=== PATIENT | male | born 1955 | race Caucasian/White ===

== ENCOUNTER 2016-12-17 09:45 | Emergency (ER) | payer MEDICAID ==
[2016-12-17 09:50] VITALS: RESP 18; TEMP 98.4
--- NOTE | 2016-12-17 09:57 | CPEKG ---
Heart Rate: 74 RR Interval: 811 P-R Interval: 160 QRSD Interval: 102 QT Interval: 360 QTC Interval: 400 P Jackson: 47 QRS Jackson: -17 T Wave Jackson: 9 EKG Severity - OTHERWISE NORMAL ECG - EKG Impression: SINUS RHYTHM EKG Impression: BORDERLINE LEFT AXIS DEVIATION Electronically Signed By: Riley Storm 17-Dec-2016 15:54:26
--- NOTE | 2016-12-17 10:17 | EDPHY ---
H & P Time Seen by Provider: 12/17/16 10:17 HPI/ROS: Chief complaint. Shortness of breath HPI. 61-year-old male presents emergency department with shortness of breath for 3 days. He feels like he is not getting enough air. Symptoms are present at rest but also especially with exertion such as climbing stairs at home. However he played golf over the weekend when and was in lead Advil over the weekend and he had no symptoms. He has some pressure anterior chest discomfort that radiates through to his back. He has had numbness to the left palm for 3 days but no weakness to the hand. No leg weakness or altered sensation. No unusual leg pain or swelling. No similar symptoms previously. No aspirin in the last 24 hours ROS Constitutional. no fever/chills, no weakness Eyes. no problems with vision ENT. no sore throat, no nasal drainage Cardiovascular. Chest discomfort Respiratory. Shortness of breath Abdominal. no abdominal pain, no nausea/vomiting, no diarrhea . no problems urinating MS. no calf pain/swelling, no neck/back pain, no joint pain Skin. no rash Lymph. no swollen glands Neuro. no headache, no dizziness, no difficulty walking or with speech Past Medical/Surgical History: Past medical history seen for prostate cancer Family history brother had an [place] 10 years ago Social History: Single, nonsmoker, no alcohol Smoking Status: Never smoked Physical Exam: General Appearance: Alert well-developed male mild distress vital signs are stable Eyes: Pupils equal and round no pallor or injection. ENT, Mouth: Mucous membranes are moist. Respiratory: There are no retractions, lungs are clear to auscultation. Cardiovascular: Regular rate and rhythm. Gastrointestinal: Abdomen is soft and nontender, no masses, bowel sounds normal. Neurological: Awake and alert, sensory and motor exams grossly normal. Skin: Warm and dry, no rashes. Musculoskeletal: Neck is supple nontender. Extremities symmetrical, full range of motion. Psychiatric: Patient is oriented X 3, there is no agitation. Constitutional: Initial Vital Signs Temperature (C) 36.9 C 12/17/16 09:48 Heart Rate 84 12/17/16 09:48 Respiratory Rate 18 12/17/16 09:48 Blood Pressure 152/94 H 12/17/16 09:48 O2 Sat (%) 97 12/17/16 09:48 O2 Delivery Mode Room Air Allergies/Adverse Reactions: No Known Allergies Allergy (Verified 12/17/16 09:48) Home Medications: Medication Instructions Recorded Mirvaso 01/24/15 Albuterol Hfa Anes Only [Proair 2 puffs IH QID PRN #1 mdi 12/17/16 Hfa Icu (*)] Azithromycin [Zithromax] 250 mg PO DAILY #6 tab 12/17/16 Flomax 12/17/16 Medical Decision Making - Diagnostics EKG Interpretation: EKG interpreted by me shows normal sinus rhythm normal interval. Left axis deviation. No significant ST elevation or depression. No arrhythmia. The rate is 74 Imaging Results: Imaging Impressions Chest X-Ray 12/17/16 11:50 Impression: Stable negative chest. I interpreted the chest x-ray is questionable left lower lobe early infiltrate Procedures: IV normal saline, monitor, aspirin in the ED ED Course/Re-evaluation: On re-evaluation the patient is stable. He is offered admission. He would like to be treated as an outpatient. He and I discussed risks and benefits of this. He is encouraged to return for any worsening symptoms. Differential Diagnosis: I considered acute coronary syndrome, COPD and COPD exacerbation, pneumonia, pneumothorax. This may be consistent with bronchitis. - Data Points Laboratory Results: Laboratory Results 12/17/16 10:00 12/17/16 10:00 12/17/16 12/17/16 12/17/16 10:00 10:00 10:00 WBC 6.45 10^3/uL 10^3/uL (3.80-9.50) RBC 4.99 10^6/uL 10^6/uL (4.40-6.38) Hgb 15.5 g/dL g/dL (13.7-17.5) Hct 46.7 % % (40.0-51.0) MCV 93.6 fL fL (81.5-99.8) MCH 31.1 pg pg (27.9-34.1) MCHC 33.2 g/dL g/dL (32.4-36.7) RDW 12.7 % % (11.5-15.2) Plt Count 225 10^3/uL 10^3/uL (150-400) MPV 9.9 fL fL (8.7-11.7) Neut % (Auto) 54.9 % % (39.3-74.2) Lymph % (Auto) 27.4 % % (15.0-45.0) [place] % (Auto) 12.7 % % (4.5-13.0) Eos % (Auto) 3.9 % % (0.6-7.6) Baso % (Auto) 0.6 % % (0.3-1.7) Nucleat RBC Rel Count 0.0 % % (0.0-0.2) Absolute Neuts (auto) 3.54 10^3/uL 10^3/uL (1.70-6.50) Absolute Lymphs (auto) 1.77 10^3/uL 10^3/uL (1.00-3.00) Absolute Monos (auto) 0.82 10^3/uL H 10^3/uL (0.30-0.80) Absolute Eos (auto) 0.25 10^3/uL 10^3/uL (0.03-0.40) Absolute Basos (auto) 0.04 10^3/uL 10^3/uL (0.02-0.10) Absolute Nucleated RBC 0.00 10^3/uL 10^3/uL (0-0.01) Immature Gran % 0.5 % % (0.0-1.1) Immature Gran # 0.03 10^3/uL 10^3/uL (0.00-0.10) D-Dimer < 0.27 ug/mLFEU ug/mLFEU (0.00-0.50) Sodium 140 mEq/L mEq/L (134-144) Potassium 4.5 mEq/L mEq/L (3.5-5.2) Chloride 108 mEq/L mEq/L (97-110) Carbon Dioxide 20 mEq/l L mEq/l (22-31) Anion Gap 12 mEq/L mEq/L (8-16) BUN 13 mg/dL mg/dL (7-23) Creatinine 0.8 mg/dL mg/dL (0.7-1.3) Estimated GFR > 60 Glucose 128 mg/dL H mg/dL (70-100) Calcium 9.7 mg/dL mg/dL (8.5-10.4) Troponin I < 0.012 ng/mL ng/mL (0.000-0.034) NT-Pro-B Natriuret Pep 44 pg/mL pg/mL (0-125) Medications Given: Discontinued Medications Aspirin (Aspirin) 324 mg PO EDNOW ONE Stop: 12/17/16 10:30 Last Admin: 12/17/16 10:34 Dose: 324 mg Departure - Departure Disposition: Home, Routine, Self-Care Clinical Impression: Pneumonia Qualifiers: Pneumonia type: due to unspecified organism Laterality: left Lung location: lower lobe of lung Qualified Code(s): J18.1 - Lobar pneumonia, unspecified organism Condition: Good Instructions: Community Acquired Pneumonia (ED) Additional Instructions: Inhaler using 2 puffs every 4-6 hours. Zithromax is antibiotic. Return for worsening chest discomfort or trouble breathing. Recheck in 1-2 days if not improving Referrals: Chadwick Balderas, DO [Primary Care Provider] - 1 day, if not improved Prescriptions: Albuterol Hfa Anes Only [Proair Hfa Icu (*)] 2 puffs IH QID PRN #1 mdi PRN Reason: Short Of Breath/Dyspnea Azithromycin [Zithromax] 250 mg PO DAILY #6 tab
[2016-12-17] MEDS ORDERED: ASPIRIN 81 MG CHEWABLE TAB PO ONE (10:29)
[2016-12-17 10:37] LABS: % IMMATURE GRANULYOCYTES 0.5 % (0.0-1.1); ABSOLUTE IMMATURE GRANULOCYTES 0.03 10^3/uL (0.00-0.10); ADD DIFF? NO; ADD MORPH? NO; ADD SCAN? NO; ATYPICAL LYMPHOCYTE FLAG 10 (0-99); FRAGMENT RBC FLAG 0 (0-99); HEMATOCRIT 46.7 % (40.0-51.0); HEMOGLOBIN 15.5 g/dL (13.7-17.5); LEFT SHIFT FLG 0 (0-99); LIPEMIA HEMOLYSIS FLAG 80 (0-99); MEAN CELL HEMOGLOBIN 31.1 pg (27.9-34.1); MEAN CELL HEMOGLOBIN CONCENTR. 33.2 g/dL (32.4-36.7); MEAN CELL VOLUME 93.6 fL (81.5-99.8); MEAN PLATELET VOLUME 9.9 fL (8.7-11.7); PLATELET CLUMPS FLAG 0 (0-99); PLATELET COUNT 225 10^3/uL (150-400); RED BLOOD CELL COUNT 4.99 10^6/uL (4.40-6.38); RED CELL DISTRIBUTION WIDTH 12.7 % (11.5-15.2)
[2016-12-17 10:42] LABS: ANION GAP 12 mEq/L (8-16); CALCIUM 9.7 mg/dL (8.5-10.4); CARBON DIOXIDE 20 mEq/l (22-31); CHLORIDE 108 mEq/L (97-110); CREATININE 0.8 mg/dL (0.7-1.3); GLOMERULAR FILTRATION RATE > 60; GLUCOSE 128 mg/dL (70-100); POTASSIUM 4.5 mEq/L (3.5-5.2); SODIUM 140 mEq/L (134-144)
[2016-12-17 10:54] LABS: TROPONIN I < 0.012 ng/mL (0.000-0.034)
[2016-12-17 11:57] VITALS: BP 145/92; PULSE 65; O2SAT 96
== END 2016-12-17 12:35 | disposition home or self-care (01) ==
DX: J18.1 Lobar pneumonia, unspecified organism (principal); Z85.46 Personal history of malignant neoplasm of prostate

== ENCOUNTER → 2017-03-17 | Outpatient (CLI) | payer MEDICAID ==
[~2017-03-17] MED LIST: IOPAMIDOL (ISOVUE-300) 100 ML BTL ONE
== END ==
LOC: FIMAGING 09:58
PROVIDERS: ATTEND Family Medicine
DX: C61 Malignant neoplasm of prostate (principal); R10.32 Left lower quadrant pain; R73.9 Hyperglycemia, unspecified; Z87.19 Personal history of other diseases of the digestive system
CPT/HCPCS: Q9967

== ENCOUNTER 2017-08-30 05:55 | Day surgery (SDC) | payer MEDICAID ==
[2017-08-30] MEDS ORDERED: LR 1,000 ML IV ONE (06:22)
[2017-08-30] MEDS ORDERED: LIDOCAINE 1% 2 ML INJ ID PRN (06:22)
[2017-08-30] MEDS ORDERED: INDOMETHACIN 50 MG SUPP PR PRN (07:19)
--- NOTE | 2017-08-30 07:19 | PDGENHP ---
History & Physical Chief Complaint: screening/gerd History of Present Illness: 62 year old male presents for screening colonoscopy as well as longstanding heartburn. Pertinent Past, Social, Family History: PMHx: prostate cancer. SugHx: colon resection, hernia. FaMHx: No CRC or polyps Relevant Physical Exam: HEENT: anicteric. CV: RRR + s1s2. Lungs: CTAB. Abd: soft, nt, + bs. No guarding or rebound Cardiorespiratory Assessment: ASA 2
--- NOTE | 2017-08-30 07:28 | PDANEPAE ---
ANE History of Present Illness GERD and screening age s/f EGD and colonoscopy ANE Past Medical History - Cardiovascular History Hx Hypertension: No Hx Arrhythmias: No Hx Chest Pain: No Hx Coronary Artery / Peripheral Vascular Disease: No Hx CHF / Valvular Disease: No Hx Palpitations: No - Pulmonary History Hx COPD: No Hx Asthma/Reactive Airway Disease: No Hx Recent Upper Respiratory Infection: No Hx Oxygen in Use at Home: No Hx Sleep Apnea: Yes Sleep Apnea Screening Result - Last Documented: Positive Pulmonary History Comment: HOME SLEEP STUDY 07-29-17. HAS CONSULT 08-11-17 W/ SLEEP MD. - Neurologic History Hx Cerebrovascular Accident: No Hx Seizures: No Hx Dementia: No - Endocrine History Hx Diabetes: No - Renal History Hx Renal Disorders: Yes Renal History Comment: HX PROSTATE CA-USES FLOMAX EVERY 4 DAYS. - Liver History Hx Hepatic Disorders: No - Neurological & Psychiatric Hx Hx Neurological and Psychiatric Disorders: No - Cancer History Hx Cancer: Yes Cancer History Comment: RADIATION FOR PROSTATE CA GAMMA KNIFE - Congenital Disorder History Hx Congenital Disorders: No - GI History Hx Gastrointestinal Disorders: Yes Gastrointestinal History Comment: PAIN L UPPER QUADRANT -ABD. - Other Health History Other Health History: SKIN: ROSACEA -WINTER TIME. - Chronic Pain History Chronic Pain: No - Surgical History Prior Surgeries: BILAT HERNIA REPAIRS ~'10;. HEMICOLECTOMY W/COLOSTOMY;. COLOSTOMY REVERSAL;. OPEN LYUBOV ~10; ANE Review of Systems Review of Systems: - Exercise capacity METS (RN): 5 METS ANE Patient History - Allergies Allergies/Adverse Reactions: No Known Allergies Allergy (Verified 08/11/17 10:24) - Home Medications Home medications: home medication list seen and reviewed Home Medications: Flomax 12/17/16 [Last Taken Unknown] - NPO status NPO Status: no food or drink >8 hours NPO Since - Liquids (Date): 08/29/17 NPO Since - Liquids (Time): 21:30 NPO Since - Solids (Date): 08/29/17 NPO Since - Solids (Time): 08:15 - Anes Hx Anes Hx: no prior problems - Smoking Hx Smoking Status: Never smoked - Alcohol Use Alcohol Use: Rarely - Family Anes Hx Family Anes Hx: none ANE Labs/Vital Signs - Vital Signs Blood Pressure: 139/83 Heart Rate: 96 Respiratory Rate: 16 O2 Sat (%): 94 Height: 172.72 cm Weight: 79.379 kg ANE Physical Exam - Airway Neck exam: FROM Mallampati Score: Class 2 Mouth exam: normal dental/mouth exam - Pulmonary Pulmonary: no respiratory distress - Cardiovascular Cardiovascular: regular rate and rhythym - ASA Status ASA Status: II ANE Anesthesia Plan Anesthesia Plan: GA with mask Total IV Anesthesia: Yes
[2017-08-30] MEDS ORDERED: NS 500 ML IV SCH (07:30)
[2017-08-30] MEDS ORDERED: PROPOFOL/EMULSION 500 MG/50 ML BOTTLE IV ONE (07:31)
[2017-08-30] MEDS ORDERED: LIDOCAINE 2% 100 MG/5 ML SYR ONE (07:31)
[2017-08-30] MEDS ORDERED: NALOXONE HCL 0.4 MG/ML INJ IVP PRN (08:09)
[2017-08-30] MEDS ORDERED: LR 500 ML IV PRN (08:09)
[2017-08-30] MEDS ORDERED: fentaNYL 100 MCG/2 ML INJ IVP PRN (08:09)
[2017-08-30] MEDS ORDERED: ACETAMINOPHEN 500 MG TAB PO PRN (08:09)
[2017-08-30] MEDS ORDERED: DEXAMETHASONE 4 MG/ML VIAL IVP PRN (08:09)
[2017-08-30] MEDS ORDERED: MEPERIDINE 25 MG/0.5 ML AMP IVP PRN (08:09)
[2017-08-30] MEDS ORDERED: ALBUTEROL 3 ML DEYVIAL IH PRN (08:09)
[2017-08-30] MEDS ORDERED: PHENYLEPHRINE HCL 100 MCG/ML SYR IVP PRN (08:09)
[2017-08-30] MEDS ORDERED: ONDANSETRON 4 MG/2 ML VIAL IVP PRN (08:09)
[2017-08-30] MEDS ORDERED: LABETALOL HCL 5 MG/ML 20 ML MDV IVP PRN (08:09)
--- NOTE | 2017-08-30 08:14 | GIREPORT ---
[facility] - Endoscopy Department Patient Name: Jose Cruz Huang Procedure Date: 08/30/2017 7:21 AM Patient Type: Outpatient Attending MD/ ER Physician: Mario Alberto Agosto MD Procedure: Upper GI endoscopy Indications: Heartburn, Suspected gastro-esophageal reflux disease Patient Profile: 62 year old male presents for evaluation of heartburn/GERD. Providers: Mario Alberto Agosto MD Medicines: Monitored Anesthesia Care Complications: No immediate complications. Estimated blood loss: Minimal. Description of Procedure: After obtaining informed consent, the endoscope was passed under direct vision. Throughout the procedure, the patient's blood pressure, pulse, and oxygen saturations were monitored continuously.The upper GI endoscopy w as accomplished without difficulty. The patient tolerated the procedure we ll. The Endoscope was introduced through the mouth, and advanced to the sec ond part of duodenum. Findings: The examined esophagus was normal. A hiatal hernia was present. Patchy mildly erythematous mucosa was found in the entire examined stom ach. Biopsies were taken with a cold forceps for histology. The examined duodenum was normal. Estimated Blood Loss: Estimated blood loss was minimal. Post Op Diagnosis: - Normal esophagus. - Hiatal hernia. - Erythematous mucosa in the stomach. Biopsied. - Normal examined duodenum. - Etiology? Suspect GERD. Can try a trial of PPI? Defer to PCP Recommendation: - Perform a colonoscopy today. - Follow an antireflux regimen. - Continue present medications. - Follow an antireflux regimen. - Use a proton pump inhibitor PO daily. - Await pathology results. - Thank you for allowing me to participate in the care of your patient. Attending Participation: I personally performed the entire procedure. Mario Alberto Agosto MD Mario Alberto Agosto MD 08/30/2017 8:13:18 AM This report has been signed electronicallyMario Alberto Agosto MD Number of Addenda: 0 Note Initiated On: 08/30/2017 7:21 AM [email or web address]
--- NOTE | 2017-08-30 08:28 | GIREPORT ---
[facility] - Endoscopy Department Patient Name: Jose Cruz Huang Procedure Date: 08/30/2017 7:36 AM Patient Type: Outpatient Attending MD/ ER Physician: Mario Alberto Agosto MD Procedure: Colonoscopy Indications: Screening for colorectal malignant neoplasm Patient Profile: 62 year old male presents for screening colonoscopy. Providers: Mario Alberto Agosto MD Medicines: Monitored Anesthesia Care Complications: No immediate complications. Estimated blood loss: Minimal. Description of Procedure: After obtaining informed consent, the scope was passed under direct vis ion. Throughout the procedure, the patient's blood pressure, pulse, and oxyg en saturations were monitored continuously. The Colonoscope with irrigatio n channel was introduced through the anus and advanced to the cecum, identified by appendiceal orifice and ileocecal valve. The colonoscopy was performed without difficulty. The patient tolerated the procedure well. The quality of the bowel preparation was good. The ileocecal valve, appendi ceal orifice, and rectum were photographed. Findings: Hemorrhoids were found on perianal exam. Scattered diverticula were found in the sigmoid colon, descending colon , transverse colon and ascending colon. A 4 mm polyp was found in the cecum. The polyp was sessile. The polyp w as removed with a cold snare. Resection and retrieval were complete. A 4 mm polyp was found in the transverse colon. The polyp was sessile. The polyp was removed with a cold biopsy forceps. Resection and retrieval w ere complete. A 12 mm polyp was found in the descending colon. The polyp was sessile. The polyp was removed with a hot snare. Resection and retrieval were comple te. A 3 mm polyp was found in the sigmoid colon. The polyp was sessile. The polyp was removed with a cold biopsy forceps. Resection and retrieval w ere complete. Five sessile polyps were found in the sigmoid colon. The polyps were 4 to 6 mm in size. These polyps were removed with a cold snare. Resection and retrieval were complete. Estimated Blood Loss: Estimated blood loss: Post Op Diagnosis: - Hemorrhoids found on perianal exam. - Diverticulosis in the sigmoid colon, in the descending colon, in the transverse colon and in the ascending colon. - One 4 mm polyp in the cecum, removed with a cold snare. Resected and retrieved. - One 4 mm polyp in the transverse colon, removed with a cold biopsy forceps. Resected and retrieved. - One 12 mm polyp in the descending colon, removed with a hot snare. Resected and retrieved. - One 3 mm polyp in the sigmoid colon, removed with a cold biopsy force ps. Resected and retrieved. - Five 4 to 6 mm polyps in the sigmoid colon, removed with a cold snare . Resected and retrieved. Recommendation: - Discharge patient to home (with escort). - Resume previous diet. - Continue present medications. - Repeat colonoscopy in 3 years for surveillance (due to # of polyps an d polyp >1cm). - Use fiber, for example Citrucel, Fibercon, Konsyl or Metamucil. - Thank you for allowing me to participate in the care of your patient. Attending Participation: I personally performed the entire procedure. Mario Alberto Agosto MD Mario Alberto Agosto MD 08/30/2017 8:28:12 AM This report has been signed electronicallyMario Alberto Agosto MD Number of Addenda: 0 Note Initiated On: 08/30/2017 7:36 AM Total Procedure Duration Time 0 hours 23 minutes 45 seconds [email or web address]
--- NOTE | 2017-08-30 08:47 | POSTANESTH ---
Post Anesthetic Evaluation Cardiovascular Status: Normal, Stable Respiratory Status: Normal, Stable Level of Consciousness/Mental Status: Can Participate in Eval Pain Control: Adequate, Prn Tx Ordered Nausea/Vomiting Control: Adequate, Prn Tx Ordered Complications Possibly Related to Anesthesia: None Noted
[2017-08-30 09:16] VITALS: BP 129/74
== END 2017-08-30 09:41 | disposition home or self-care (01) ==
LOC: FSGY 05:55
PROVIDERS: ATTEND Internal Medicine Gastroenterology
DX: Z12.11 Encounter for screening for malignant neoplasm of colon (principal); K21.9 Gastro-esophageal reflux disease without esophagitis; D12.0 Benign neoplasm of cecum; D12.3 Benign neoplasm of transverse colon; D12.4 Benign neoplasm of descending colon; D12.5 Benign neoplasm of sigmoid colon; K63.5 Polyp of colon; K64.9 Unspecified hemorrhoids; K44.9 Diaphragmatic hernia without obstruction or gangrene; K57.30 Diverticulosis of large intestine without perforation or abscess without bleeding; Z85.46 Personal history of malignant neoplasm of prostate
CPT/HCPCS: J2001; J2704